=== PATIENT | female | born 1985 | race Caucasian/White ===

== ENCOUNTER → 2022-05-10 10:44 | Outpatient (BNVA) | payer OTHER, SELFPAY | PROVIDERS: PCP Nurse Practitioner Family; Visit Provider Physician Assistant Surgical | DX: E66.01 Morbid (severe) obesity due to excess calories (principal); Z68.39 Body mass index [BMI] 39.0-39.9, adult | CPT/HCPCS: 99202 ==

== ENCOUNTER 2022-05-13 10:13 | Outpatient (REF) | payer OTHER, SELFPAY ==
--- NOTE | ~2022-05-13 | XR_ITS ---
EXAMINATION: XR CHEST CLINICAL INFORMATION: Morbid to severe obesity due to excess calories COMPARISON: None TECHNIQUE: 2 views of the chest were obtained. FINDINGS: No significant abnormality is noted involving the heart, lungs, mediastinum, bony thorax or soft tissues. XR/XR chest 2V IMPRESSION: Unremarkable chest examination.
--- NOTE | 2022-05-13 10:18 | ECG_ITS ---
Test Reason : e66.01 Blood Pressure : / mmHG Vent. Rate : 070 BPM Atrial Rate : 070 BPM P-R Int : 152 ms QRS Dur : 076 ms QT Int : 408 ms P-R-T Axes : 033 019 010 degrees QTc Int : 440 ms Normal sinus rhythm Nonspecific T wave abnormality Abnormal ECG When compared with ECG of 17-MAR-2007 20:02, Nonspecific T wave abnormality is now Present Referred By: Vega Najera Electronically Signed By:JAZZY IYER
[2022-05-13 10:38] LABS: MANUAL DIFF FLAG NO
[2022-05-13 11:35] LABS: Basophils Percent Auto 0.4 % (0-2); Eosinophils Absolute Auto 0.2 X10*3/uL (0.0-0.4); Eosinophils Percent Auto 1.7 % (0-4); Hematocrit 38.4 % (37.0-47.0); Hemoglobin 13.4 g/dl (12.0-16.0); Imm Gran Abs Auto 0.05 X10*3/uL (0.00-0.03); Imm Gran Pct Auto 0.5 % (0.0-0.4); Lymphocytes Absolute Auto 3.4 X10*3/uL (1.2-4.9); Lymphocytes Percent Auto 33.3 % (20-40); Mean Corpuscular HGB Conc 34.9 g/dl (31.0-35.0); Mean Corpuscular Hemoglobin 26.3 pg (27.0-33.0); Mean Corpuscular Volume 75.3 fL (80.0-98.0); Mean Platelet Volume 10.3 fL (9.4-12.3); Monocytes Absolute Auto 0.4 X10*3/uL (0.1-1.2); Monocytes Percent Auto 4.3 % (2-11); Neutrophils Absolute Auto 6.1 x10*3/uL (2.0-8.3); Neutrophils Percent Auto 59.8 % (45-73); Platelet Count 336 X10*3/uL (160-400); Red Cell Distribution Width 13.1 % (11.0-16.0); White Blood Count 10.3 X10*3/uL (4.8-10.8)
[2022-05-13 11:46] LABS: Estimated Average Glucose 111 mg/dL; Hemoglobin A1c % 5.5 %
[2022-05-13 12:07] LABS: Alanine Aminotransferase 22 U/L (0-31); Albumin Level 4.2 g/dL (3.5-5.0); Alkaline Phosphatase 110 U/L (39-117); Anion Gap 15 (12-20); Aspartate Amino Transferase 16 U/L (5-31); Bilirubin Total 0.5 mg/dL (0.0-1.0); Blood Urea Nitrogen 12 mg/dL (9-16); C Reactive Protein 1.42 mg/dL (< or = 0.50); Calcium 9.2 mg/dL (8.4-10.2); Carbon Dioxide 23 mmol/L (22-29); Chloride 107 mmol/L (96-108); Cholesterol 192 mg/dL; Estimated Glomerular Filt Rate > 60; Glucose Random 93 mg/dL (60-115); HDL Cholesterol 43 mg/dL; Iron 84 mcg/dL (30-160); LDL Cholesterol Calculated 112 mg/dl; Percent Iron Saturation 26 % (15-50); Potassium 4.3 mmol/L (3.3-5.1); Sodium 141 mmol/L (135-145); Total Iron Binding Capacity 329 mcg/dL (228-428); Total Protein 6.9 g/dL (6.5-8.0); Triglycerides 188 mg/dL; Unsaturated Iron Binding 245 ug/dL
[2022-05-13 12:14] LABS: Ferritin 105 ng/mL (10-122); Insulin 20 uU/mL (2-29); TSH reflex Free T4 0.67 uIU/mL (0.32-4.0); Vitamin D 25-OH Total 34.3 ng/mL (>30)
[2022-05-13 12:34] LABS: Folate 18.5 ng/mL (> or = 4.0); Vitamin B12 295 pg/mL (200-900)
[2022-05-14 12:47] LABS: Calcium (PTHI) 9.1 mg/dL (8.6-10.2); PTHI 53 pg/mL (16-77)
[2022-05-15 14:09] LABS: H Pylori Breath Test Negative (Negative)
[2022-05-16 01:27] LABS: Zinc 83 mcg/dL (60-130)
[2022-05-16 17:41] LABS: Vitamin A 49 mcg/dL (38-98)
[2022-05-17 12:47] LABS: Vitamin B1 13 nmol/L (8-30)
== END 2022-05-13 10:14 | disposition home or self-care (01) ==
LOC: HO.XRAY 10:13
PROVIDERS: PCP Internal Medicine; Visit Provider Physician Assistant Surgical
DX: E66.01 Morbid (severe) obesity due to excess calories (principal); R94.31 Abnormal electrocardiogram [ECG] [EKG]
CPT/HCPCS: 36415; 71046; 80053; 80061; 82306; 82607; 82728; 82746; 83013; 83036; 83525; 83540; 83970; 84425; 84443; 84590; 84630; 85025; 86140; 93005; 99211

== ENCOUNTER → 2022-06-07 11:19 | Outpatient (BNVA) | payer OTHER, SELFPAY | PROVIDERS: PCP Internal Medicine; Referring Provider Physician Assistant Surgical; Visit Provider Dietitian, Registered | DX: E66.01 Morbid (severe) obesity due to excess calories (principal) | CPT/HCPCS: 97802 ==

== ENCOUNTER → 2022-11-18 14:55 | Outpatient (BNVA) | payer OTHER, SELFPAY | PROVIDERS: PCP Internal Medicine; Visit Provider Nurse Practitioner Family | DX: G56.03 Carpal tunnel syndrome, bilateral upper limbs (principal); M79.7 Fibromyalgia; M79.671 Pain in right foot; M79.672 Pain in left foot | CPT/HCPCS: 99202 ==

== ENCOUNTER 2025-04-22 11:04 | Outpatient (REF) | payer OTHER, SELFPAY ==
--- OUTSIDE RECORDS SUMMARY | 2025-04-22 11:49 | XMS_ITS | Clinical Summary ---
Author Organization [facility] Address [address] [place] [phone] Phone Care Team Providers Care Line Assembler Aircraft Name Role Phone Mayra Smyth MD Primary Care Provider [phone] Allergies Active Allergy Reactions Criticality Noted Date Comments Lactose 09/15/2018 Medications nystatin (MYCOSTATIN) 100,000 unit/gram powder Topical application on the rash (under the breast) twice a day for 7 to 10 days 05/27/20 24 Active Zepbound 12.5 mg/0.5 mL injectionIndica tions:Class 2 obesity due to excess calories with body mass index (BMI) of 35.0 to 35.9 in adult, unspecified whether serious comorbidity present INJECT 1 PEN WEEKLY 2 mL 1 04/20/20 25 025 Active tirzepatide, weight loss, (Zepbound) 12.5 mg/0.5 mL injectionIndica tions:Class 2 obesity due to excess calories with body mass index (BMI) of 35.0 to 35.9 in adult, unspecified whether serious comorbidity present INJECT 1 PEN WEEKLY 2 mL 1 02/19/20 25 025 Discontinued Active Problems Problem Noted Date Diagnosed Date Esophageal dysmotility 06/08/2024 Heartburn 06/08/2024 Hiatal hernia 06/08/2024 COVID 08/08/2022 Left carpal tunnel syndrome 12/26/2021 IBS (irritable bowel syndrome) 09/15/2018 Overview (06/08/2024): Patient reported Snoring 06/16/2018 Overview (06/08/2024): 05/2018 Home Sleep Study did not reveal sleep apnea. 09/2018 Polysomnogram did not reveal sleep apnea. Pre-study ESS 6. 1/4 RLS symptoms. Fibromyalgia 07/23/2017 OAB (overactive bladder) 12/17/2012 Anxiety 12/11/2012 Depression 12/11/2012 Class 2 obesity with body ma ss index (BMI) of 38.0 to 38.9 in adult 10/25/2011 Encounters Date Type Department Care Team Description 04/13/2025 Telephone Adult Medicine [address] [phone] Mayra Smyth MD 02/03/2025 10:45 AM EDT Office Visit Bariatric Surgery [address] [phone] Michelle Haque MD Class 1 obesity due to excess calories with body mass index (BMI) of 32.0 to 32.9 in adult, unspecified whether serious comorbidity present (Primary Dx) 02/02/2025 3:30 PM EDT Office Visit [address] [phone] Misa Bauer PA Fatigue, unspecified type (Primary Dx); Encounter for herb and vitamin supplement management; Psychosocial stressors 01/29/2025 8:26 AM EDT - 01/29/2025 11:59 PM EDT Hospital Encounter [facility] [address] [place] [phone] Encounter for screening mammogram for breast cancer Discharge Disposition: Home or Self Care 01/20/2025 Telephone Bariatric Surgery [facility] [address] [phone] Michelle Haque MD from Last 3 Months Immunizations Name Administration Dates Next Due DTP 11/12/1990, 8,01/23/1987,1986,1986 Diptheria & Tetanus, 6wks to less than 7yo 11/12/1990,04/25/1988,01/23/1987,1986,1986 HPV, Quadrivalent 10/31/2011 Influenza Quadravalent, MDCK , 0.5ml, preservative free (Flucelvax) 6mo and older 11/05/2021 Influenza trivalent, 0.5mL, preservative free (Fluarix; FluLaval; Fluzone) ages 6mo and older (Afluria) 3 years and older 05/27/2024,06/03/2014,06/03/2013,2011 Influenza trivalent, with preservative (Fluzone; Afluria) 6mo and older 12/01/2020 MMR, measles mumps and rubel la Live (Priorix; M-M-R II) 12mo and older 10/18/1996,05/15/1988 OPV 11/12/1990, 8,01/23/1987,1986,1986 Pfizer SARS-CoV-2 COVID-19, mRNA, LNP-S, preservative free 08/10/2021,05/01/2021 Td Tetanus diptheria (Tdvax) 7yo and older 01/10/1998 Tdap Tetanus diptheria acell ular pertussis (Boostrix; Adacel) 7yo and older 03/12/2021,09/30/2014,11/07/2011 Varicella live (Varivax) 12m o and older 01/10/1998 Surgical History Surgery Date Site/Laterality Comments FLEXIBLE SIGMOIDOSCOPY 11/11/2011 PROCEDURE: NV SIGMOIDOSCOPY FLX DX W/COLLJ SPEC BR/WA IF PFRMD; COMMENT: small healed external hemorrhoids BREAST REDUCTION 11/14/2011 PROCEDURE: NV BREAST REDUCTION; COMMENT: bilateral reduction mammoplasty WISDOM TOOTH EXTRACTION PROCEDURE: HISTORICAL WISDOM TEETH EXTRACTION; COMMENT: all 4 ESOPHAGOGASTRODUODENOSCOPY PROCEDURE: NV EGD TRANSORAL BIOPSY SINGLE/MULTIPLE; COMMENT: EGD September [address] Carrillo study BLADDER SUSPENSION 2014 PROCEDURE: HISTORICAL BLADDER SUSPENSION; COMMENT: SLING SECTION PROCEDURE: HISTORICAL DELIVERY OTHER SURGICAL HISTORY PROCEDURE: NV DILATION & CURETTAGE DX&/THER NONOBSTETRIC; COMMENT: x4 Medical History Medical History Date Comments Gestational diabetes 2010 DX:Gestatio nal diabetes; COMMENT: pills Irritable bowel syndrome DX:Irri table bowel syndrome Snoring 06/16/2018 DX:Snoring; COMM ENT: 05/2018 Home Sleep Study did not reveal sleep apnea. Anxiety 12/11/2012 DX:Anxiety Depression 12/11/2012 DX:Depression Fibromyalgia 07/23/2017 DX:Fibromyalgia History of gestational diabetes DX:History of gestational diabetes OAB (overactive bladder) 12/17/2012 DX:OAB (overactive bladder) Obesity (BMI 30-39.9) 10/25/2011 DX:Obesity (BMI 30-39.9) History of rectal bleeding 11/07/2011 DX:Hi story of rectal bleeding; COMMENT: Neg flex sig to 30 cm on 11/11/2011 except ext hemorrhoids. HSV-1 (herpes simplex virus 1) infection 01/31/2016 DX:HSV-1 (herpes simplex vir us 1) infection; COMMENT: IgG positive. 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 COMMENT: Hgb C trait noted on hgb electrophoresis ([facility]) Hiatal hernia DX:Hiatal hernia Esophageal dysmotility DX:Esopha geal dysmotility Family History Medical History Relation Name Comments No Known Problems Father Hypertension Maternal Grandmother CHF, as thma, cataract Hypertension Mother HLD, asthma Asthma Sister x 1 thyroid issue Breast cancer Neg Hx Colon cancer Neg Hx Ovarian cancer Neg Hx Relation Name Status Comments Father Alive Maternal Grandfather unknown Maternal Grandmother Mother Alive Paternal Grandfather Alive Paternal Grandmother Sister x 1 Alive Social History Tobacco Use Types Packs/Day Years Used Date Smoking Tobacco: Never Smokeless Tobacco: Never Tobacco Cessation:Counseling Given: Not Answered Alcohol Use Standard Drinks/Week Comments No 0 (1 standard drink = 0.6 oz pur e alcohol) Comments No Sex and Gender Information Value Date Recorded Sex Assigned at Not on file Legal Sex Female 9:36 AM EST Gender Identity Not on file Sexual Orientation Not on file Obstetrics History * This document contains information received from the source organization and may not represent a complete record from that organization. Para Term AB IAB SAB Ectopic Multiple Livin g Live Births 7 3 2 1 1 0 3 3 Date Outcome GA Total Labor Labor/2nd/3rd Weight Sex Type Anes PTL Amina A1 A5 Name Clin 2009 Ectopic Comments:methotrexate, left tube 2010 36w 2d 3515 g (124 oz) F Vag-S pont Local N Livin g Yobany Kendall Dr.Co sta Delivery Location:[facility] Comments:poorly contro lled type 2 DM on glyburide. 2014 Term 37w 1d 7h 07m 6h 58m/0h 04m/0h 05m 3799 g (134 oz) F Vag-S pont Epidur al N Livin g 8 9 Jaylia nise Dia n Smidy CNM Delivery Location:[facility] Comments:PIH/GHTN. GBS +. was on progesterone supp 2018 2019 2020 Term CS-Un spec Livin g Last Filed Vital Signs Vital Sign Reading Time Taken Comments Blood Pressure 98/67 02/03/2025 11:00 AM EDT Pulse 79 02/03/2025 11:00 AM EDT Temperature 36.6 C (97.8 F) 02/03/2025 11:00 AM EDT Respiratory Rate 14 02/02/2025 3:28 PM EDT Oxygen Saturation - - Inhaled Oxygen Concentration - - Weight 84.8 kg (187 lb) 02/03/2025 11:00 AM EDT Height 162.6 cm (5' 4 ) 02/03/2025 11:00 AM EDT Body Mass Index 32.1 02/03/2025 11:00 AM EDT Plan of Treatment Upcoming Encounters Date Type Department Care Team (Late st Contact Info) Description 06/03/2025 8:30 AM EDT Office Visit [facility] Hematology Oncology [address] [place] [phone] Christelle Akins PA [address] [place] [address] 06/21/2025 4:00 PM EDT Office Visit [address] [phone] Misa Bauer PA [address] [place] [address] 08/02/2025 1:45 PM EST Office Visit Bariatric Surgery - [address] [place] [phone] Michelle Haque MD [address] [place] [phone] Health Maintenance Due Date Last Done Comments Hepatitis B Vaccines (1 of 3 - 19+ 3-dose series) 2005 HPV Vaccines (2 - 3-dose series) 11/28/2011 10/31/2011 Social Influencers of Health Screening 08/03/2022 COVID-19 Vaccine ( season) 2024 08/10/2021, 05/01/2021 Depression Screening 08/25/2024 05/27/2024 Influenza Vaccine (#1) 2025 , 11/05/2021, 12/01/2020, Additional history exists Cervical Cancer Screening: HPV 04/05/2027 04/05/2022 Cholesterol Screening (Lipid Panel) 05/30/2029 05/30/2024, 05/30/2024 DTaP,Tdap,and Td Vaccines (10 - Td or Tdap) 03/12/2031 03/12/2021, 09/30/2014, 11/07/2011, Additional history exists IPV Vaccines Completed 11/12/1990, 08/1987, 01/23/1987, Additional history exists MMR Vaccines Completed 10/18/1996, 05/15/1988 Varicella Vaccines Aged Out 01/10/1998 No longer eligible based on patient's age to complete this topic HIV Screening Completed 04/05/2022 Hepatitis C Screening Completed 04/05/2022 HIB Vaccines Aged Out No longer eligi ble based on patient's age to complete this topic Hepatitis A Vaccines Aged Out No long er eligible based on patient's age to complete this topic Meningococcal ACWY Vaccine Aged Out N o longer eligible based on patient's age to complete this topic Meningococcal B Vaccine Aged Out No l onger eligible based on patient's age to complete this topic Pneumococcal Vaccine: Pediatrics (0 to 5 Years) and At-Risk Patients (6 to 49 Years) Aged Out No longer eligible based on patient's age to complete this topic RSV Immunization Patients Under 20 months Aged Out No longer eligible based on patient's age to complete this topic Procedures Procedure Name Priority Date/Time Associated Diagnosis Comments CBC WITH AUTO DIFFERENTIAL Routine 02/02/2025 4:11 PM EDT Fatigue, unspecified type CBC AND DIFFERENTIAL Routine 02/02/2025 4:11 PM EDT Fatigue, unspecified type IRON AND TIBC Routine 02/02/2025 4:11 PM EDT Fatigue, unspecified type FERRITIN Routine 02/02/2025 4:11 PM EDT Fatigue, unspecified type THYROID STIMULATING HORMONE WITH REFLEX TO FREE T4 AND FREE T3 Routine 02/02/2025 4:11 PM EDT Fatigue, unspecified type VITAMIN D 25 HYDROXY Routine 02/02/2025 4:11 PM EDT Fatigue, unspecified type VITAMIN B12 Routine 02/02/2025 4:11 PM EDT Encounter for herb and vitamin supplement management MG MAMMO DIGITAL SCREENING W BELEN BILAT Routine 01/29/2025 8:44 AM EDT Encounter for screening mammogram for breast cancer LIPID PANEL Routine 05/30/2024 DEPRESSION SCREENING Routine 05/27/2024 HPV Routine 04/05/2022 HEPATITIS C SCREENING Routine 04/05/2022 HIV SCREENING Routine 04/05/2022 from Last 3 Months or Most Recently Relevant to Health Maintenance Results * Thyroid stimulating hormone with reflex to free t4 and free t3 (02/02/2025 4:11 PM EDT) [facility] TSH 0.87 0.40 - 4.00 mcIU/mL LAB CHEMISTRY METHOD 02/02/2025 7:55 PM EDT [facility] Blood Venous blood specimen / Unknown Venipuncture / Unknown 02/02/2025 4:11 PM EDT 02/02/2025 4:11 PM EDT us Misa MCMILLAN LAB BLOOD ORDERABLES Final Res ult [facility] [address] [place] [address], * (ABNORMAL) CBC auto differential (02/02/2025 4:11 PM EDT) [facility] WBC 13.1(H) 4.8 - 10.8 K/mcL LAB HEMETOLOGY METHOD 02/02/2025 6:54 PM EDT [facility] RBC 5.00(H) 3.80 - 4.80 M/mcL LAB HEMETOLOGY METHOD 02/02/2025 6:54 PM EDT [facility] Hemoglobin 12.8 11.5 - 16.0 g/dL LAB HEMETOLOGY METHOD 02/02/2025 6:54 PM EDT [facility] Hematocrit 38.3 35.0 - 47.0 % LAB HEMETOLOGY METHOD 02/02/2025 6:54 PM EDT [facility] MCV 77.4(L) 79.0 - 98.0 FL LAB HEMETOLOGY METHOD 02/02/2025 6:54 PM EDT [facility] MCH 25.9(L) 27.0 - 32.0 pcg LAB HEMETOLOGY METHOD 02/02/2025 6:54 PM EDT [facility] MCHC 33.4 32.0 - 37.0 g/dL LAB HEMETOLOGY METHOD 02/02/2025 6:54 PM EDT [facility] RDW 13.8 11.0 - 15.0 % LAB HEMETOLOGY METHOD 02/02/2025 6:54 PM EDT [facility] Platelets 365 130 - 400 K/mcL LAB HEMETOLOGY [facility] MPV 10.5 7.0 - 11.0 FL LAB HEMETOLOGY METHOD 02/02/2025 6:54 PM EDT [facility] NRBC 0.0 <1.0 % LAB HEMETOLOGY METHOD 02/02/2025 6:54 PM EDT [facility] NRBC Absolute 0.00 <0.10 K/mcL LAB HEMETOLOGY METHOD 02/02[facility]2025 6[facility] Neutrophils Relative 63.7 % LAB HEMETOLOGY METHOD 02/02/2025 6:54 PM EDT [facility] Lymphocytes Relative 29.9 % LAB HEMETOLOGY METHOD 02/02[facility]2025 6:[facility] Monocytes Relative 4.4 % LAB HEMETOLOGY METHOD 02/02/2025 6:54 PM [facility] Eosinophils Relative 1.3 % LAB HEMETOLOGY METHOD 02/02/2025 6:[facility] Basophils Relative 0.3 % LAB HEMETOLOGY METHOD 02/02/2025 6:[facility] Immature Granulocytes Relative 0.4 % LAB HEMETOLOGY METHOD 02/02/2025 6:54 PM EDT [facility] Neutrophils Absolute 8.36(H) 1.50 - 7.00 K/mcL LAB HEMETOLOGY METHOD 02/02[facility]2025 6:[facility] Lymphocytes Absolute 3.93 1.00 - 5.00 K/mcL LAB HEMETOLOGY METHOD 02/02/2025 6:54 PM EDT [facility] Monocytes Absolute 0.58 0.20 - 1.00 K/mcL LAB HEMETOLOGY METHOD 02/02/2025 6:54 PM EDT [facility] Eosinophils Absolute 0.17 0.00 - 0.50 K/[facility] LAB HEMETOLOGY METHOD 02/02/2025 6:54 PM EDT [facility] Basophils Absolute 0.04 0.00 - 0.20 K/[facility] LAB HEMETOLOGY METHOD 02/02/2025 6:54 PM EDT [facility] Immature Granulocytes Absolute 0.05(H) 0.00 - 0.03 K/[facility] LAB HEMETOLOGY METHOD 02/02/2025 6:54 PM EDT [facility] Blood Venous blood specimen / Unknown Venipuncture / Unknown 02/02/2025 4:11 PM EDT 02/02/2025 4:11 PM EDT us Misa MCMILLAN LAB BLOOD ORDERABLES Final Res ult [facility] [address] [place] [address], * Iron and TIBC (02/02/2025 4:11 PM EDT) Iron 50 40 - 150 mcg/dL LAB CHEMISTRY METHOD 02/02/2025 7:53 PM EDT [facility] TIBC 300 250 - 450 mcg/dL LAB CHEMISTRY METHOD 02/02/2025 7:53 PM EDT [facility] Iron Saturation 17 15 - 50 % LAB CHEMISTRY METHOD 02/02/2025 7:53 PM EDT [facility] Blood Venous blood specimen / Unknown Venipuncture / Unknown 02/02/2025 4:11 PM EDT 02/02/2025 4:11 PM EDT Misa MCMILLAN LAB BLOOD ORDERABLES Final Res ult [facility] [address] [place] [address], [place] [phone] * (ABNORMAL) Vitamin D 25 hydroxy (02/02/2025 4:11 PM EDT) [facility] Vit D, 25-Hydroxy 27.2(L) 30.0 - 80.0 ng/mL LAB CHEMISTRY METHOD 02/02/2025 7:55 PM EDT [facility] Blood Venous blood specimen / Unknown Venipuncture / Unknown 02/02/2025 4:11 PM EDT 02/02/2025 4:11 PM EDT Misa MCMILLAN LAB BLOOD ORDERABLES Final Res ult Performing Organization Address City/[facility]/ZIP Co de Phone Number [facility] [address] [place] [address], [place] [phone] * Ferritin (02/02/2025 4:11 PM EDT) [facility] Ferritin 86 8 - 252 ng/mL LAB CHEMISTRY METHOD 02/02/2025 7:53 PM EDT [facility] Blood Venous blood specimen / Unknown Venipuncture / Unknown 02/02/2025 4:11 PM EDT 02/02/2025 4:11 PM EDT Misa Bauer [place] LAB BLOOD ORDERABLES Final Res ult [facility] [address] [place] [address], [place] [phone] * Vitamin B12 (02/02/2025 4:11 PM EDT) [facility] Vitamin B-12 418 250 - 900 pcg/mL LAB CHEMISTRY METHOD 02/02/2025 7:53 PM EDT [facility] Blood Venous blood specimen / Unknown Venipuncture / Unknown 02/02/2025 4:11 PM EDT 02/02/2025 4:11 PM EDT Misa MCMILLAN LAB BLOOD ORDERABLES Final Res ult [facility] [address] [place] [address], * MG Mammo Digital Screening w Belen bilat (01/29/2025 8:44 AM EDT) Anatomical Region Laterality Modality Breast Bilateral Mammography 02/08/2025 8:14 AM EDT Impressions 02/08/2025 8:17 AM EDT No mammographic evidence of malignancy. A negative mammogram in the presence of a clinically suspicious palpable abnormality does not preclude the possibility of malignancy or alter the indications for biopsy. PQRI CPT II 3342F Code 39825, 22305 PQRI 225 CPT II 7025F TISSUE DENSITY: There are scattered areas of fibroglandular density. (BI-RADS category B) IMPRESSION: Benign. BI-RADS CATEGORY: 2 - BENIGN RECOMMENDATION: Screening bilateral mammogram is recommended in 1 year. Mammo Location: [facility], [facility], [address] [place] [id number] -------- FINAL REPORT -------- Dictated By: Nathaniel Arreola Dictated Date: 02/08/2025 08:14 ET Assigned Physician: Nathaniel Arreola Reviewed and Electronically Signed By: Nathaniel Arreola Signed Date: 02/08/2025 08:17 ET Workstation ID: [id number] Transcribed By: Self Edit Transcribed Date: 02/08/2025 08:14 ET Narrative 02/08/2025 8:17 AM EDT CLINICAL: The patient is a 39 years Female presenting for baseline screening mammography. COMPARISON: None TECHNIQUE: Full-field digital mammography of the breasts bilaterally consisting of tomosynthesis in MLO and CC projection is performed in the [employer] 2000-D unit. Computer aided detection utilizing the iCAD system was utilized. FINDINGS: The breasts are seen to be composed of a combination of fatty and fibroglandular elements. Scattered benign punctate and coarse calcifications are present bilaterally. There is no suspicious cluster of microcalcifications, mass, or area of architectural distortion. There is no skin thickening or nipple retraction. Procedure Note Nathaniel Arreola MD - 02/08/2025 CLINICAL: The patient is a 39 years Female presenting for baselinescreening mammography. COMPARISON: None TECHNIQUE: Full-field digital mammography of the breasts bilaterallyconsisting of tomosynthesis in MLO and CC projection is performed in thePROTEGOographe 2000-D unit. Computer aided detection utilizing the iCADsystem was utilized. FINDINGS: The breasts are seen to be composed of a combination of fattyand fibroglandular elements. Scattered benign punctate and coarsecalcifications are present bilaterally. There is no suspicious cluster ofmicrocalcifications, mass, or area of architectural distortion. There isno skin thickening or nipple retraction. IMPRESSION: No mammographic evidence of malignancy. A negative mammogram in the presence of a clinically suspicious palpableabnormality does not preclude the possibility of malignancy or alter theindications for biopsy. PQRI CPT II 3342F Code 13409, 52959 PQRI 225 CPT II 7025F TISSUE DENSITY: There are scattered areas of fibroglandular density.(BI-RADS category B) IMPRESSION: Benign. BI-RADS CATEGORY: 2 - BENIGN RECOMMENDATION: Screening bilateral mammogram is recommended in 1 year. Mammo Location: [facility], [facility], [address] [place] [id number] -------- FINAL REPORT -------- Dictated By: Nathaniel Arreola Dictated Date: 02/08/2025 08:14 ET Assigned Physician: Nathaniel Arreola Reviewed and Electronically Signed By: Nathaniel Arreola Signed Date: 02/08/2025 08:17 ET Workstation ID: [id number] Transcribed By: Self Edit Transcribed Date: 02/08/2025 08:14 ET us Self Referral Sppl IMG BI PROCEDURES Final Resul t * (ABNORMAL) Lipid panel (05/30/2024) [facility] LDL/HDL Ratio 4 0 - 4 Triglycerides 147 0 - 150 mg/dL Cholesterol 204(A) 0 - 200 mg/dL HDL 54 >=40 mg/dL LDL Cholesterol 121(A) 0 - 100 mg/dL Blood Venous blood specimen / Unknown [facility] Provider LAB BLOOD ORDERABLES Pamela l Result * Depression Screening (05/27/2024) [facility] Depression Screening Abstracted [facility] Provider HEALTH MAINTENANCE Final Result * Cervical Cancer Screening: HPV (04/05/2022) [facility] Cervical Cancer Screening: HPV Negative, Abstracted Result [facility] Provider HEALTH MAINTENANCE Final Result * HIV Screening (04/05/2022) [facility] HIV Screening Abstracted [facility] Provider HEALTH MAINTENANCE Final Result * Hepatitis C Screening (04/05/2022) [facility] Hepatitis C Screening Abstracted [facility] Provider HEALTH MAINTENANCE Final Result from Last 3 Months or Most Recently Relevant to Health Maintenance [place] [address] Care Teams Line Assembler Aircraft Relationship Specialty Start Date End Date Mayra Smyth MD [address] [place] [address] PCP - General Internal Medicine 07/07/24
--- OUTSIDE RECORDS SUMMARY | 2025-04-22 11:49 | XMS_ITS | Patient Health Record ---
Author Organization [facility] Address [address] [place] [phone] Care Team Providers Care Pantograph Machine Set Up Operator Name Role Phone Ga Freedman Unavailable [phone] Reason For Referral No Information Plan Of Treatment No Information
--- OUTSIDE RECORDS SUMMARY | 2025-04-22 11:49 | XMS_ITS ---
Author Name [facility] Organization Unknown Care Team Organization Name Specialty Phone Email Start Date End Da te [facility] Mayra Smyth Primary Care 12/30/2022 024 [facility] Brenda Flaherty Primary Care 07/02/2022
--- OUTSIDE RECORDS SUMMARY | 2025-04-22 11:49 | XMS_ITS | Encounter Summary ---
Author Organization [facility] Address [address] [place] [address] Care Team Providers Care Last Turner Name Role Phone Mayra Smyth MD Primary Care Provider [phone] Reason for Visit * Reason Onset Date Comments Provider call back 04/13/2025 Encounter Details Date Type Department Care Team (Late st Contact Info) Description 04/13/[address] [phone] Mayra Smyth MD [address] [place] [address] Social History Tobacco Use Types Packs/Day Years Used Date Smoking Tobacco: Never Smokeless Tobacco: Never Alcohol Use Standard Drinks/Week Comments No 0 (1 standard drink = 0.6 oz pur e alcohol) Comments No Sex and Gender Information Value Date Recorded Sex Assigned at Not on file Legal Sex Female 9:36 AM EST Gender Identity Not on file Sexual Orientation Not on file documented as of this encounter Progress Notes * Mayra Smyth MD - 04/22/2025 9:25 AM EDT We have not been following patient for weight loss hence I cannot write a letter saying that she has had stable weight loss or not. Hence I will defer to weight management to comment on her weight loss being stable or not. As far as use of 2 antifungals I have only prescribed the patient nystatin so I cannot write that if patient wants to discuss this further she will have to come in for a visit as her last visit was in May * Jolie Montano MA - 04/22/2025 8:[address] Smyth defer to wt management * Ladonna Molina MA - 04/21/2025 4:14 PM EDT Patient needs to add to the letter.Patient has had stable weight loss for at least one month and currently at 175 lbs. Provider is aware of the weight loss. and that she has failed on 2 antifungal therapies within the last year. Please Advise * Jolie Montano MA - 04/21/2025 3:42 PM EDT Pt notified * Mayra Smyth MD - 04/21/2025 10:17 AM EDT Letter completed * Kathi Reid - 04/20/2025 4:51 PM EDT Patient is calling in due to insurance needing the note to state the dates she has seen Dr. Smyth for the rash on her stomach. She states that she currently has a rash now so it is important. Please advise. * Jolie Montano MA - 04/14/2025 11:42 AM EDT Pt notified will acces through my chart, [email or web address] * Mayra Smyth MD - 04/14/2025 11:33 AM EDT Letter completed * Jolie Montano MA - 04/14/2025 11:01 AM EDT Pt is looking for documentation in regards to possible surgery insurance coverage, She is also concerned about excessive abdominal skin as sometimes in the folds she gets irritation rash, sometimes small cuts. I will start her on nystatin powder to be applied as needed. -She is also concerned about excessive eyelid skin on her eyebrows and wondering if she can have these removed. Patient was advised that this should be discussed with her cosmetic surgeon, patient defers consultation for now. Can we release note or do a letter? Re abd fold rashes * Kathi Reid - 04/13/2025 3:38 PM EDT Patient is calling in as she needed a clinical note that states that the nystatin (MYCOSTATIN) powder was prescribed for under the stomach but it looks like in the directions it states under the breast. She would like to speak to Dr. Smyth to see if that would be an easy fix. Please advise. documented in this encounter Plan of Treatment Upcoming Encounters Date Type Department Care Team (Late st Contact Info) Description 06/03/2025 8:30 AM EDT Office Visit [facility] Hematology Oncology [address] [place] [address] Christelle Akins PA [address] [place] [address] 06/21/2025 4:00 PM EDT Office Visit [facility] [address] [place] [phone] Misa Bauer PA [address] [place], [place] 08/02/2025 1:45 PM EST Office Visit Bariatric Surgery - [address] [place] [address] Michelle Haque MD [address] [place] [address] documented as of this encounter Visit Diagnoses Not on filedocumented in this encounter Care Teams Last Turner Relationship Specialty Start Date End Date Mayra Smyth MD [address] [place] [address] PCP - General Internal Medicine 07/07/24 documented as of this encounter
--- OUTSIDE RECORDS SUMMARY | 2025-04-22 11:49 | XMS_ITS | Clinical Summary ---
Author Organization [facility] Address [address] [place] [address] Phone Care Team Providers Care Conservation Scientist Name Role Phone Unavailable Primary Care Provider Unavailabl e Social History Tobacco Use Types Packs/Day Years Used Date Smoking Tobacco: Never Assessed Comments Unknown Sex and Gender Information Value Date Recorded Sex Assigned at Not on file Legal Sex Female 6:37 AM EDT Gender Identity Not on file Sexual Orientation Not on file Plan of Treatment Not on file
[2025-04-22 13:34] LABS: MANUAL DIFF FLAG NO
[2025-04-22 13:38] LABS: Hematocrit 36.2 % (37.0-47.0); Hemoglobin 12.9 g/dl (12.0-16.0); Imm Gran Abs Auto 0.04 X10*3/uL (0.00-0.03); Imm Gran Pct Auto 0.4 % (0.0-0.4); Lymphocytes Absolute Auto 3.5 X10*3/uL (1.2-4.9); Mean Corpuscular HGB Conc 35.6 g/dl (31.0-35.0); Mean Corpuscular Hemoglobin 26.7 pg (27.0-33.0); Mean Corpuscular Volume 74.9 fL (80.0-98.0); NRBC Abs Auto 0.000 X10*3/uL (0.0-0.012); NRBC Pct Auto 0.0 /100WBC (0.0-0.2); Platelet Count 333 X10*3/uL (160-400); Red Blood Count 4.83 X10*6/uL (4.20-5.50); White Blood Count 9.2 X10*3/uL (4.8-10.8)
[2025-04-22 14:00] LABS: Alanine Aminotransferase 13 U/L (0-31); Albumin Level 4.1 g/dL (3.5-5.0); Alkaline Phosphatase 71 U/L (39-117); Anion Gap 11 (12-20); Aspartate Amino Transferase 20 U/L (5-31); Blood Urea Nitrogen 9 mg/dL (9-16); Calcium 8.6 mg/dL (8.4-10.2); Carbon Dioxide 26 mmol/L (22-29); Chloride 109 mmol/L (96-108); Estimated Glomerular Filt Rate > 60; Potassium 4.1 mmol/L (3.3-5.1); Sodium 142 mmol/L (135-145); Total Protein 6.5 g/dL (6.5-8.0)
== END 2025-04-22 11:05 | disposition home or self-care (01) ==
LOC: HO.HMGCLDS 11:04
PROVIDERS: PCP Internal Medicine; Visit Provider Student in an Organized Health Care Education/Training Program
DX: Z79.899 Other long term (current) drug therapy (principal)
CPT/HCPCS: 36415; 80053; 85025